=== PATIENT | female | born 1960 | race Native Hawaiian/Other Pacific Islander ===

== ENCOUNTER 2017-12-01 11:03 | Outpatient (CLI) | payer BC ==
[2017-12-01 11:46] LABS: POTASSIUM 3.9 mmol/L (3.6-5.2)
== END 2017-12-01 19:31 | disposition home or self-care (01) ==
LOC: LABW 11:03
PROVIDERS: Physician Assistant
DX: E03.8 Other specified hypothyroidism (principal); R73.9 Hyperglycemia, unspecified
CPT/HCPCS: 36415; 80053; 83036; 84439; 84443

== ENCOUNTER 2018-05-25 12:00 | Outpatient (CLI) | payer BC ==
[2018-05-25 12:57] LABS: PLATELET COUNT 293 K/uL (152-353)
== END 2018-05-25 22:05 | disposition home or self-care (01) ==
LOC: LABW 12:00
PROVIDERS: Physician Assistant
DX: R53.82 Chronic fatigue, unspecified (principal); Z98.84 Bariatric surgery status
CPT/HCPCS: 36415; 82306; 82607; 84443; 85027